=== PATIENT | male | born 1960 | race Caucasian/White ===

== ENCOUNTER 2024-04-16 10:04 | Emergency (ER) | payer OTHER ==
[~2024-04-16] VITALS: Ht 177.8 cm; Wt 102.3 kg
[2024-04-16 11:28] LABS: BASOPHILS % (AUTO) 0.1 % (0-1); EOSINOPHILS # (AUTO) 0.1 X10'3 (0-0.9); EOSINOPHILS % (AUTO) 1.2 % (0-6); HEMATOCRIT 46.6 % (42.0-52.0); HEMOGLOBIN 15.9 g/dl (14.0-17.9); LYMPHOCYTES # (AUTO) 0.9 X10'3 (1.1-4.8); LYMPHOCYTES % (AUTO) 8.7 % (21-51); MEAN CORPUSCULAR HGB CONC 34.2 g/dL (33.0-36.5); MEAN CORPUSCULAR VOLUME 93.6 FL (78-98); MEAN PLATELET VOLUME 7.6 FL (7.4-10.4); MONOCYTES % (AUTO) 8.9 % (2-12); NEUTROPHILS # (AUTO) 8.8 X10'3 (1.8-7.7); NEUTROPHILS % (AUTO) 81.1 % (42-75); PLATELET COUNT 214 X10'3 (140-440); RED BLOOD COUNT 4.98 X10'6 (4.70-6.10); RED CELL DISTRIBUTION WIDTH 13.3 % (11.5-14.5); WHITE BLOOD COUNT 10.9 X10'3 (4.5-11.0)
[2024-04-16 11:28] LABS: BILIRUBIN,URINE NEGATIVE (Neg); CLARITY,URINE CLEAR (Clear); COLOR,URINE YELLOW (Yellow); GLUCOSE, URINE NEGATIVE (Neg); KETONES,URINE NEGATIVE (Neg); LEUKOCYTE ESTERASE ,URINE NEGATIVE (Neg); NITRITES, URINE NEGATIVE (Neg); OCCULT BLOOD,URINE TRACE-INTACT (Neg); PROTEIN,URINE NEGATIVE (Neg); UROBILINOGEN,URINE 0.2 E.U/dL (0.2-1.0)
[2024-04-16 11:36] LABS: UA COLLECTION TYPE CLN CATCH MIDSTREAM
[2024-04-16 11:37] LABS: BACTERIA,URINE NONE SEEN /HPF (Neg); MUCUS STRANDS NONE SEEN /LPF (Neg); SQUAMOUS EPITHELIAL CELL,UR NONE SEEN /LPF (FEW); WBC,URINE 0-4 /HPF (0-4)
[2024-04-16] MEDS: normal saline 1000ML IV soln IVB ONE (15:02)
[2024-04-16] MEDS: piperacillin/tazo 3.375gm/50ml 50 ML IV ONE (15:17)
[2024-04-16] MEDS ORDERED: OXYC-138 PO (15:46)
[2024-04-16] MEDS ORDERED: AMOX-580 PO (15:46)
[2024-04-16] MEDS ORDERED: ONDA-243 PO (15:46)
[2024-04-16 16:15] VITALS: BP 157/83; PULSE 78; RESP 16; TEMP 98.8; O2SAT 97
== END 2024-04-16 16:18 | disposition home or self-care (01) ==
LOC: ER 10:04
DX: K57.32 Diverticulitis of large intestine without perforation or abscess without bleeding (principal); K80.20 Calculus of gallbladder without cholecystitis without obstruction; D35.00 Benign neoplasm of unspecified adrenal gland; K76.0 Fatty (change of) liver, not elsewhere classified; N40.0 Benign prostatic hyperplasia without lower urinary tract symptoms
CPT/HCPCS: 36415; 74176; 81001; 83880; 85025; 96365; 99285; J2543; J7030